=== PATIENT | female | born 1965 | race Caucasian/White ===

== ENCOUNTER 2020-04-17 12:48 | Outpatient (CLI) | payer BC, SELFPAY ==
--- NOTE | 2020-04-17 12:30 | XRR_ITS ---
PROCEDURE INFORMATION: Exam: XR Abdomen, 1 View Exam date and time: 04/17/2020 1:15 PM Age: 54 years old Clinical indication: Condition or disease; Kidney or ureter condition; Calculus (stone) in kidney and calculus (stone) in ureter; Prior surgery; Surgery type: Hysto; Additional info: Renal and ureteral stone TECHNIQUE: Imaging protocol: XR of the abdomen. Views: Frontal supine view of the abdomen. 1 View. COMPARISON: AR XR KUB [id number] 03/18/2019 7:14 AM FINDINGS: Gastrointestinal tract: Normal. No bowel dilation. Organs: A 3 mm calcification projects on the upper pole of the right kidney which is unchanged. Phleboliths are present in the lower pelvis. Bones/joints: Unremarkable. XR/XR KUB [id number] IMPRESSION: 1. Stable 3 mm calcification projecting in the upper pole of the right kidney. 2. No acute abnormalities are seen.
== END 2020-04-17 12:49 | disposition home or self-care (01) ==
LOC: RAD 12:52
PROVIDERS: PCP Nurse Practitioner Family; Visit Provider Nurse Practitioner Family
DX: N20.2 Calculus of kidney with calculus of ureter (principal)
CPT/HCPCS: 74018; 81003

== ENCOUNTER 2020-04-24 11:55 | Outpatient (CLI) | payer BC, SELFPAY ==
--- NOTE | 2020-04-24 11:59 | CT_ITS ---
WS: [id number] CT scan of the abdomen and pelvis without Oral and IV contrast. Additional two-dimensional coronal an d sagittal reconstruction was performed. 04/24/2020 Clinical Data: ACUTE CYSTITIS AND HEMATURIA Comparison: CT abdomen, 12/17/2017 DLP: 1117.[address] scans at [facility] use at least one of these dose optimization techniques: automat ed exposure control; mA and/or kV adjustment per patient size (includes targeted exams where dose is matched to clinical indication); or iterative reconstruction. Findings: The lower lungs show no nodules, masses or effusions. The liver, gallbladder, spleen, adrenal glands and pancreas are normal. The kidneys show no hydronephrosis, cysts or masses. There is a central nonobstructing 0.6 cm calculu s in the right kidney. No hydroureter or ureteral calculus is seen. The abdominal aorta is normal in size. No appendicitis or diverticulitis is seen. The stomach, small bowel and colon are not remarkable. No abscess, adenopathy, ascites, mass, obstruction or free air is seen. The bladder is unremarkable. The uterus is absent. No inguinal hernia is seen. The bones of the lower thorax, lumbar spine, pelvis, and hips show only osteoarthritic change of the lower thoracic and all the lumbar vertebral bodies. CT/CT kidney stone [id number] Impression: 1. Central nonobstructing 0.6 cm right renal calculus. 2. Negative for acute intra-abdominal or pelvic abnormalities.
== END 2020-04-24 11:56 | disposition home or self-care (01) ==
LOC: RADWPI 11:58
PROVIDERS: PCP Nurse Practitioner Family; Visit Provider Nurse Practitioner Family
DX: N30.01 Acute cystitis with hematuria (principal); N20.0 Calculus of kidney
CPT/HCPCS: 74176

== ENCOUNTER 2020-12-28 12:00 | Outpatient (CLI) | payer BC, SELFPAY ==
--- NOTE | 2020-12-28 12:15 | XR_ITS ---
WS: [id number] KUB, AP view, 12/28/2020 Clinical Data: RENAL STONE Comparison: KUB, 04/17/2020. Findings: No abnormal intraabdominal masses are seen. There is no dilatated small bowel or evidence of obstruct ion. There is a calcification overlying the superior pole the right kidney. Both kidneys are obscured by o verlying colon gas and fecal material. There are phleboliths in the true pelvis. XR/XR KUB [id number] Impression: Probable right renal calculus.
== END 2020-12-28 12:01 | disposition home or self-care (01) ==
LOC: RAD 12:01
PROVIDERS: PCP Nurse Practitioner Family; Visit Provider Urology
DX: N20.0 Calculus of kidney (principal)
CPT/HCPCS: 74018; 81003

== ENCOUNTER 2021-01-05 07:49 | Outpatient (CLI) | payer BC, SELFPAY ==
--- NOTE | 2021-01-05 08:00 | CT_ITS ---
WS: [id number] CT scan of the abdomen and pelvis with Oral and IV contrast. Additional two-dimensional coronal and s agittal reconstruction was performed. 01/05/2021 Clinical Data: RIGHT LATERAL ABDOMINAL PAIN Comparison: CT abdomen and pelvis, 04/24/2020. DLP: 1118.[address] scans at [facility] use at least one of these dose optimization techniques: automat ed exposure control; mA and/or kV adjustment per patient size (includes targeted exams where dose is matched to clinical indication); or iterative reconstruction. Findings: The lower lungs show no nodules, masses or effusions. The liver, gallbladder, spleen, adrenal glands and pancreas are normal. The kidneys show equal bilateral contrast excretion with a central 0.6 cm nonobstructing right renal calculus. No left renal calculi are seen. There are no cysts, masses or hydronephrosis.. The abdominal aorta is normal in size. No appendicitis or diverticulitis is seen. Oral contrast is in the stomach, small bowel and colon and there is no bowel dilatation. No abscess, adenopathy, ascites, mass, obstruction or free air is seen . The bladder is unremarkable. No uterus is seen. No inguinal hernia is seen. 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 CT/CT abdomen pelvis w con* [id number] Impression: Negative for acute intra-abdominal or pelvic abnormalities.
[2021-01-05] MEDS: iohexol 300 mg/mL 50 mL Btl PO (08:52)
[2021-01-05] MEDS: iohexol 300 mg/mL 100 mL Btl IV (09:43)
== END 2021-01-05 07:50 | disposition home or self-care (01) ==
PROVIDERS: PCP Nurse Practitioner Family; Visit Provider Nurse Practitioner Family
DX: R10.9 Unspecified abdominal pain (principal)
CPT/HCPCS: 74177; Q9967

== ENCOUNTER 2021-03-09 07:51 | Outpatient (CLI) | payer BC, SELFPAY ==
--- NOTE | 2021-03-09 08:00 | MM_ITS ---
WS: [id number] SCREENING DIGITAL MAMMOGRAM WITH CAD HISTORY: SCR COMPARISON: 07/03/2017 and 08/24/2010 Bilateral CC and MLO views submitted. Computer aided detection analyzed. Breast composition: There are scattered areas of fibroglandular density. No suspicious masses, microc alcifications or architectural distortion. MM/[place] [id number] IMPRESSION: BI-RADS: 1-Negative FOLLOW UP: 1 Year Follow-up
== END 2021-03-09 07:52 | disposition home or self-care (01) ==
LOC: RADSHAW 07:53
PROVIDERS: PCP Nurse Practitioner Family; Visit Provider Nurse Practitioner Family
DX: Z12.31 Encounter for screening mammogram for malignant neoplasm of breast (principal)
CPT/HCPCS: 77067

== ENCOUNTER 2021-03-28 09:11 | Outpatient (CLI) | payer BC, SELFPAY ==
--- NOTE | 2021-03-28 09:20 | XR_ITS ---
WS: [id number] XR KUB [id number] REASON FOR EXAM: hematuria FINDINGS: Small calculus in the upper pole of the right kidney. No other intrarenal calculi identified. No hernandez ge from 12/28/2020. No calculi identified along the course of the ureters or overlying the urinary bladder. Small calcifi cations in the pelvis considered outside the genitourinary tract. No other significant abdominal or pelvic abnormality. XR/XR KUB [id number] IMPRESSION: Right intrarenal calculus unchanged. No other significant abnormality.
== END 2021-03-28 09:12 | disposition home or self-care (01) ==
LOC: RAD 09:13
PROVIDERS: PCP Nurse Practitioner Family; Visit Provider Urology
DX: N20.0 Calculus of kidney (principal); R31.9 Hematuria, unspecified
CPT/HCPCS: 74018; 81003; 87635; 88112

== ENCOUNTER 2021-04-10 06:00 | Outpatient (RCR) | payer BC, SELFPAY | END 2021-04-15 23:59 | disposition home or self-care (01) | LOC: SPT 06:00 | PROVIDERS: PCP Nurse Practitioner Family; Referring Provider Orthopaedic Surgery; Visit Provider Orthopaedic Surgery | DX: M17.12 Unilateral primary osteoarthritis, left knee (principal) | CPT/HCPCS: 97110; 97161 ==

== ENCOUNTER 2021-04-16 06:00 | Outpatient (RCR) | payer BC, SELFPAY | END 2021-05-03 15:11 | disposition home or self-care (01) | LOC: SPT 06:00 | PROVIDERS: PCP Nurse Practitioner Family; Referring Provider Orthopaedic Surgery; Visit Provider Orthopaedic Surgery | DX: M17.12 Unilateral primary osteoarthritis, left knee (principal) | CPT/HCPCS: 97110 ==

== ENCOUNTER 2021-04-23 07:39 | Outpatient (CLI) | payer BC, SELFPAY ==
--- NOTE | 2021-04-23 07:15 | XRR_ITS ---
PROCEDURE INFORMATION: Exam: XR Abdomen Exam date and time: 04/23/2021 7:15 AM Age: 55 years old Clinical indication: Condition or disease; Kidney or ureter condition; Calculus (stone) in kidney; Prior surgery; Surgery type: Hystero; Patient HX: Follow up; Additional info: Renal stone TECHNIQUE: Imaging protocol: XR of the abdomen. Views: Frontal supine view of the abdomen. 1 View. COMPARISON: CR XR KUB [id number] 03/28/2021 9:39 AM FINDINGS: Gastrointestinal tract: Nonobstructive bowel gas pattern. Bones/joints: Mild levocurvature of the lumbar spine and multilevel degenerative changes seen. Other findings: A 4 mm nonobstructing stone is again seen projecting over the right kidney shadow. XR/XR KUB [id number] IMPRESSION: Nonobstructive bowel gas pattern. Radiation Dose CTDIVOL = (mGy): DLP = (mGy-cm)
== END 2021-04-23 07:40 | disposition home or self-care (01) ==
LOC: RAD 07:42
PROVIDERS: PCP Nurse Practitioner Family; Visit Provider Urology
DX: N20.0 Calculus of kidney (principal)
CPT/HCPCS: 74018; 81003

== ENCOUNTER 2022-08-21 06:00 | Outpatient (RCR) | payer OTHER, SELFPAY | END 2022-09-13 23:59 | disposition home or self-care (01) | LOC: SPT 06:00 | PROVIDERS: PCP Nurse Practitioner Family; Visit Provider Orthopaedic Surgery | DX: M47.816 Spondylosis without myelopathy or radiculopathy, lumbar region (principal) | CPT/HCPCS: 97110; 97162 ==

== ENCOUNTER 2022-09-14 01:00 | Outpatient (RCR) | payer OTHER, SELFPAY | END 2022-10-13 23:59 | disposition home or self-care (01) | LOC: SPT 01:00 | PROVIDERS: PCP Nurse Practitioner Family; Visit Provider Orthopaedic Surgery | DX: M47.816 Spondylosis without myelopathy or radiculopathy, lumbar region (principal) | CPT/HCPCS: 97110 ==

== ENCOUNTER 2022-10-14 06:00 | Outpatient (RCR) | payer OTHER, SELFPAY | END 2022-11-13 23:59 | disposition home or self-care (01) | LOC: SPT 06:00 | PROVIDERS: PCP Nurse Practitioner Family; Visit Provider Orthopaedic Surgery | DX: M47.816 Spondylosis without myelopathy or radiculopathy, lumbar region (principal) | CPT/HCPCS: 97110; G0283 ==

== ENCOUNTER 2022-11-08 11:30 | Emergency (ER) | payer OTHER, MEDICAID, SELFPAY ==
[2022-11-08] VITALS (7 sets, daily range): BP systolic 131–169; BP diastolic 73–89; PULSE 68–78; RESP 16–17; TEMP 36.6–36.8; O2SAT 94–98; BMI 39.1
[2022-11-08 12:58] LABS: Basophils % 0.5 %; Eosinophils # 0.1 10^3/uL (0.0-0.8); Eosinophils % 1.2 %; Hematocrit 46.4 % (37.0-47.0); Hemoglobin 15.2 g/dL (11.5-15.3); Lymphocytes # 2.8 10^3/uL (0.8-4.8); Lymphocytes % 34.1 %; Mean Corpuscular HGB Conc 32.8 g/dL (30.0-36.0); Mean Corpuscular Hemoglobin 30.1 pg (28.0-34.0); Mean Corpuscular Volume 91.9 fl (81-99); Mean Platelet Volume 12.7 fL (7.4-10.4); Monocytes # 0.3 10^3/uL (0.2-0.9); Monocytes % 3.5 %; Neutrophils # 4.99 10^3/uL (1.8-7.7); Neutrophils % 60.5 %; Nucleated Red Blood Cells % 0 %; Platelet Count 123 10^3/cmm (130-400); Red Blood Count 5.05 10^6/uL (4.1-5.3); Red Cell Distribution Width 13.3 % (12.1-15.1); White Blood Count 8.3 10^3/uL (4.0-10.0)
[2022-11-08 13:13] LABS: Alanine Aminotransferase 16 U/L (0-33); Albumin Level 3.8 g/dL (3.5-5.2); Alkaline Phosphatase 94 U/L (35-105); Aspartate Amino Transferase 15 U/L (0-32); Blood Urea Nitrogen 8 mg/dL (6-20); Calcium 8.6 mg/dL (8.5-10.5); Carbon Dioxide 20 mmol/L (22-29); Chloride 105 mmol/L (98-107); Creatinine Clr Calc Pharmacy 152.3946; Globulin 2.8 g/dL (1.3-4.6); Glomerular Filtration Rate 127.6 mL/min (90-130); Glucose 87 mg/dL (65-115); Osmolality Calculated 286 mOsm/kg (285-295); Sodium 139 mmol/L (136-145); Total Bilirubin 0.8 mg/dL (0.15-1.2); Total Protein 6.6 g/dL (6.6-8.7)
[2022-11-08 13:17] LABS: Anion Gap 18.1 (5-19); Potassium 4.1 mmol/L (3.5-5.1)
--- NOTE | 2022-11-08 16:51 | CTR_ITS ---
PROCEDURE INFORMATION: Exam: CT Abdomen And Pelvis Without Contrast Exam date and time: 11/08/2022 5:03 PM Age: 57 years old Clinical indication: Abdominal pain; Flank; Right; Prior surgery; Surgery date: 6+ months; Surgery type: Hyster; Additional info: Flank pain, HX of kidney stones TECHNIQUE: Imaging protocol: Computed tomography of the abdomen and pelvis without contrast. Axial, coronal and sagittal reformatted images were created and reviewed. Radiation optimization: All CT scans at this facility use at least one of these dose optimization techniques: automated exposure control; mA and/or kV adjustment per patient size (includes targeted exams where dose is matched to clinical indication); or iterative reconstruction. REPORTING DATA: Count of CT and Cardiac NM exams in prior 12 months: This patient has received 0 known CTs and 0 known cardiac nuclear medicine studies in the 12 months prior to the current study. COMPARISON: CT abdomen pelvis w con* [id number] 01/05/2021 9:32 AM RADIATION DOSE METRICS: Total DLP (mGy-cm): 1008.36 FINDINGS: Liver: Mild hepatomegaly. Diffuse hepatic steatosis. Gallbladder and bile ducts: No radiodense gallstones. No biliary ductal dilatation. Pancreas: Unremarkable. Spleen: 2 cm simple splenic cyst. Adrenal glands: Normal. No mass. Kidneys and ureters: Nonobstructing right renal calculi. No hydronephrosis. Stomach and bowel: No bowel wall thickening. No obstruction. No pneumatosis. Appendix: Normal. Intraperitoneal space: No free fluid. No organized fluid collection. No free air. Vasculature: Mild atherosclerotic disease. No aneurysm. Lymph nodes: No pathologically enlarged lymph nodes. Urinary bladder: Unremarkable as visualized. Reproductive: Status post hysterectomy. Bones/joints: No acute osseous abnormality. Osteopenia. Degenerative changes. Soft tissues: Unremarkable. CT/CT abdomen pelvis wo con [id number] IMPRESSION: 1. Limited noncontrast examination without CT evidence of acute intra-abdominal or pelvic pathology. 2. Additional findings, as above.
--- NOTE | 2022-11-08 17:11 | ED_ITS ---
HPI - Abdominal Pain General: Chief Complaint: Abdominal Pain Stated Complaint: low back pain Time Seen by Provider: 11/08/22 16:55 History of Present Illness: Patient presents with a right-sided flank pain starting yesterday. Patient does state this is similar to when she had kidney stones in the past. Patient does state that nothing makes his pain better or worse. MD elicited complaint: flank pain Pertinent past history: kidney stones Onset (ago): day(s) (Yesterday) Pain Consistency: colicky Location: R flank Quality: stabbing Radiation: none Migration to: no migration Exacerbating factors: nothing Relieving factors: nothing Associated Symptoms: Reports no associated symptoms; Denies chills, fever(s), nausea and vomiting Review of Systems General: Reports: 10 or more systems reviewed and unremarkable except in HPI and below Const: Denies: fever(s), chills or body aches ENMT: Denies: throat pain or enlarged tonsils Card: Denies: chest pain, palpitations or irregular heart rhythm Resp: Denies: dyspnea or non-productive cough GI: Denies: abdominal pain, nausea or vomiting : Reports: flank pain PFSH ED PFSH: Medical History Chronic cystitis Cystitis Gross hematuria Right renal stone Urgency incontinence Surgical History H/O knee surgery H/O: hysterectomy S/P foot surgery, right Family History Father Diabetes CAD (coronary artery disease) Social History Alcohol intake: never Substance/Drug Use: never Marital status: Current occupational status: employed Physical Exam Const: COMMON NORMALS: no acute distress, average body habitus, patient oriented x3, no limitations, healthy appearing, alert and well nourished HENMT: COMMON NORMALS: normocephalic, atraumatic, hearing grossly normal bilaterally, Normal external nose present and moist oral mucous membranes HEAD & SCALP: normocephalic and atraumatic NOSE: Normal external nose present Eye: COMMON NORMALS: Equal, round and reactive pupils present, EOMs intact bilaterally, conjunctivae normal and no scleral icterus CONJUNCTIVA: Yes conjunctivae normal PUPIL: Yes Equal, round and reactive pupils present Neck/C-Spine: COMMON NORMALS: full ROM, no lymphadenopathy, supple, no meni ngeal signs, no JVD and Thyroid normal THYROID: Thyroid normal Lymph: LYMPHATIC: no lymphadenopathy noted Chest: COMMONS NORMALS: normal inspection of the chest and normal palpation of entire chest wall Resp: COMMON NORMALS: normal respiratory effort, No retractions, No use of accessory muscles and clear to auscultation bilaterally AUSCULTATION: clear to auscultation bilaterally Cardio: COMMON NORMALS: no JVD, regular rate, regular rhythm, S1 normal heart sound present, S2 normal heart sound present, No gallops present (Cardio), No clicks present (Cardio), No murmurs present (Cardio) and No rub (Cardio) RATE : regular rate RHYTHM: regular rhythm HEART SOUNDS: S1 normal heart sound present and S2 normal heart sound present GI: COMMON NORMALS: Normal to inspection, nondistended, normoactive bowel sounds present, Soft to palpation, non-tender, No hepatosplenomegaly present and no masses PALPATION: Yes Soft to palpation and Yes No hepatosplenomegaly present : BLADDER/KIDNEY EXAM: Yes CVA tenderness on the right Back/Pelvis: GENERAL BACK: Yes CVA tenderness Neuro: COMMON NORMALS: patient oriented x3 SENSORIUM/ORIENTATION: Yes alert MENINGEAL SIGNS: Yes no meningeal signs Course Vital Signs: Vital signs: Vital Signs Temperature 97.9 F 11/08/22 16:30 Pulse Rate 68 11/08/22 17:35 Respiratory Rate 16 11/08/22 17:35 Blood Pressure 168/83 11/08/22 17:35 Pulse Oximetry 98 11/08/22 17:35 Oxygen Delivery Me thod Room Air 11/08/22 17:35 MDM - Abdominal Pain Medical Decision Making Patient presents to the ER today with complaints of low back pain, right flank pain, patient has history of kidney stones in the past and says this feels exactly like them. Lab work was obtained as well as CT scan which showed right renal stone. Lab work was unremarkable. UA is pending. Patient will be discharged home with a diagnosis of right renal stone and low back pain. Patient is to follow-up with her primary care practitioner within 1 week. Differential Diagnosis Likely calculus of kidney; Unlikely abdominal pain, acute appendicitis, c onstipation, diverticulitis, endometriosis, gastroenteritis or small bowel obstruction Medical Records I reviewed the patient's medical records. Lab Data I reviewed the patient's lab results. 11/08/22 12:40 11/08/22 12:40 Labs/Radiology: Radiology Impressions Abdomen/Pelvis CT 11/08/22 16:51 IMPRESSION: 1. Limited noncontrast examination without CT evidence of acute intra-abdominal or pelvic pathology. 2. Additional findings, as above. Laboratory Results WBC 8.3 10^3/uL (4.0-10.0) 11/08/22 12:40 RBC 5.05 10^6/uL (4.1-5.3) 11/08/22 12:40 Hgb 15.2 g/dL (11.5-15.3) 11/08/22 12:40 Hct 46.4 % (37.0-47.0) 11/08/22 12:40 MCV 91.9 fl (81-99) 11/08/22 12:40 MCH 30.1 pg (28.0-34.0) 11/08/22 12:40 MCHC 32.8 g/dL (30.0-36.0) 11/08/22 12:40 RDW 13.3 % (12.1-15.1) 11/08/22 12:40 Plt Count 123 10^3/cmm (130-400) L 11/08/22 12:40 MPV 12.7 fL (7.4-10.4) H 11/08/22 12:40 Neut % (Auto) 60.5 % 11/08/22 12:40 Lymph % (Auto) 34.1 % 11/08/22 12:40 Mcnairy % (Auto) 3.5 % 11/08/22 12:40 Eos % (Auto) 1.2 % 11/08/22 12:40 Baso % (Auto) 0.5 % 11/08/22 12:40 Neut # (Auto) 4.99 10^3/uL (1.8-7.7) 11/08/22 12:40 Lymph # (Auto) 2.8 10^3/uL (0.8-4.8) 11/08/22 12:40 Mcnairy # (Auto) 0.3 10^3/uL (0.2-0.9) 11/08/22 12:40 Eos # (Auto) 0.1 10^3/uL (0.0-0.8) 11/08/22 12:40 Baso # (Auto) 0.0 10^3/uL (0.0-0.1) 11/08/22 12:40 Nucleated RBC % (auto) 0 % 11/08/22 12:40 Nucleated RBCs # 0.0 /100WBC 11/08/22 12:40 Sodium 139 mmol/L (136-145) 11/08/22 12:40 Potassium 4.1 mmol/L (3.5-5.1) 11/08/22 12:40 Chloride 105 mmol/L (98-107) 11/08/22 12:40 Carbon Dioxide 20 mmol/L (22-29) L 11/08/22 12:40 Anion Gap 18.1 (5-19) 11/08/22 12:40 BUN 8 mg/dL (6-20) 11/08/22 12:40 Creatinine 0.5 mg/dL (0.5-0.9) 11/08/22 12:40 GFR Calculation 127.6 mL/min (90-130) 11/08/22 12:40 Glucose 87 mg/dL (65-115) 11/08/22 12:40 Calculated Osmolality 286 mOsm/kg (285-295) 11/08/22 12:40 Calcium 8.6 mg/dL (8.5-10.5) 11/08/22 12:40 Total Bilirubin 0.8 mg/dL (0.15-1.2) 11/08/22 12:40 AST 15 U/L (0-32) 11/08/22 12:40 ALT 16 U/L (0-33) 11/08/22 12:40 Alkaline Phosphatase 94 U/L (35-105) 11/08/22 12:40 Total Protein 6.6 g/dL (6.6-8.7) 11/08/22 12:40 Albumin 3.8 g/dL (3.5-5.2) 11/08/22 12:40 Globulin 2.8 g/dL (1.3-4.6) 11/08/22 12:40 Discharge Plan Discharge Patient Disposition: Home Clinical Impression: Right renal stone Low back pain Qualifiers: Chronicity: acute Back pain laterality: right Sciatica presence: without sciatica Qualified Code(s): M54.50 - Low back pain, unspecified Condition: Stable Prescriptions: No Action celecoxib 200 mg capsule 200 mg PO DAILY amoxicillin-pot clavulanate 875-125 mg tablet 1 tab PO BID Qty: 30 3RF Discharge Orders: Discharge ED (Routine); Ordered 11/08/22 Ordered By: Kaleb Ambrose Referrals: Cecile Fuentes FNP [Primary Care Provider] - 1 week Patient Instructions: Kidney Stones, Back Pain (ED) Coding Level of Care Code ED Public Health Veterinarian for Aj Keith
[2022-11-08] MEDS: ketorolac 60 mg/2 mL INJ IM (17:31)
[2022-11-08 18:45] LABS: Add Urine Microscopic? YES; Bilirubin Urine Neg (Negative); Blood Urine 2+ (Negative); Glucose Urine UA Norm (Normal); Ketones Urine 1+ (Negative); Nitrate Urine Positive (Negative); Protein Urine Neg (Negative); Specific Gravity, Urine 1.025 (1.005-1.030); Urine Appearance Cloudy (CLEAR); Urine Color Yellow (Yellow); Urobilinogen Urine Norm (Negative); pH Urine 5 (5-7)
[2022-11-08 18:46] LABS: Leukocyte Esterase Urine Trace (Negative)
[2022-11-08 18:47] LABS: Bacteria Urine 3+ /hpf
[2022-11-08 18:48] LABS: Mucus Urine 1+ /hpf
== END 2022-11-08 18:14 | disposition home or self-care (01) ==
PROVIDERS: Physician Assistant; Emergency Provider Emergency Medicine; PCP Nurse Practitioner Family
DX: M54.50 Low back pain, unspecified (principal); N20.0 Calculus of kidney; Z87.442 Personal history of urinary calculi
CPT/HCPCS: 36415; 74176; 80053; 81001; 85025; 96372; 99284; J1885

== ENCOUNTER 2023-11-01 19:05 | Emergency (ER) | payer OTHER, SELFPAY ==
[2023-11-01 19:22] VITALS: BP 107/52; PULSE 96; RESP 16; TEMP 37.2; O2SAT 96; BMI 41.1
--- NOTE | 2023-11-01 19:38 | CTR_ITS ---
PROCEDURE INFORMATION: Exam: CT Abdomen And Pelvis Without Contrast Exam date and time: 11/01/2023 8:40 PM Age: 58 years old Clinical indication: Abdominal pain; Right; Prior surgery; Surgery date: 6+ months; Surgery type: Hysterectomy; Patient HX: C/O RT flank pain. History of nephrolithiasis. TECHNIQUE: Imaging protocol: Computed tomography of the abdomen and pelvis without contrast. Radiation optimization: All CT scans at this facility use at least one of these dose optimization techniques: automated exposure control; mA and/or kV adjustment per patient size (includes targeted exams where dose is matched to clinical indication); or iterative reconstruction. COMPARISON: CT abdomen pelvis wo con [id number] 11/08/2022 5:03 PM RADIATION DOSE METRICS: Total DLP (mGy-cm): 1038.43 FINDINGS: Liver: The liver is diffusely low in attenuation consistent with hepatic steatosis. Gallbladder and bile ducts: Normal. No calcified stones. No ductal dilation. Pancreas: Normal. No ductal dilation. Spleen: There is a 2.2 cm simple appearing cyst in the anterior aspect of the spleen. Adrenal glands: Normal. No mass. Kidneys and ureters: There is a nonobstructing 6 mm stone in the right kidney. There is an obstructing 4 mm stone in the distal right ureter at the ureterovesical junction with upstream hydro ureter and moderate hydronephrosis. Stomach and bowel: Unremarkable. No obstruction. No mucosal thickening. Appendix: No evidence of appendicitis. Intraperitoneal space: Unremarkable. No free air. No significant fluid collection. Vasculature: Unremarkable. No abdominal aortic aneurysm. Lymph nodes: Unremarkable. No enlarged lymph nodes. Urinary bladder: Unremarkable as visualized. Reproductive: Unremarkable as visualized. Bones/joints: Unremarkable. No acute fracture. Soft tissues: Unremarkable. CT/CT kidney stone [id number] IMPRESSION: There is an obstructing 4 mm stone in the distal right ureter at the ureterovesical junction with upstream hydro ureter and moderate hydronephrosis.
--- NOTE | 2023-11-01 20:53 | ED_ITS ---
Documented by User: LEONARDO Williamson 11/01/23 23:31 HPI - Abdominal Pain 2 General: Chief Complaint: Abdominal Pain Stated Complaint: UTI Time Seen by Provider: 11/01/23 20:26 Source: patient Mode of arrival: ambulatory Limitations: no limitations History of Present Illness: Patient is a 58-year-old female who presents to the emergency department complaining of right-sided flank pain onset today. Patient initially was seen at [facility] walk-in where she was diagnosed with a UTI and started on Keflex. She states that she was told to present to the ED if her pain persisted. She notes that she is now feeling pain in her right side which was not there earlier, and has been having associated fevers, chills, and nausea/vomiting. She states she has a history of kidney stones and that this feels similar. She also notes that she has a current kidney stone that has been sitting in her kidneys for years. She was seen recently in the emergency department for the same pain. Currently she is reporting some hematuria and dysuria, which is what prompted her to get evaluation at [facility]. Pain is reportedly constant and is sharp in quality. Pain does not radiate and is localized to the right CVA. She has only taken ibuprofen and Tylenol for her pain which has not seemed to help. She is requesting something stronger for pain and something for nausea at this time. MD elicited complaint: flank pain Pertinent past history: kidney stones and past UTI Onset (ago): hour(s) Pain Consistency: constant Location: R flank Severity: moderate Quality: sharp Associated Symptoms: Reports chills, dysuria, fever(s), hematuria, nausea and vomiting; Denies bloating, change in stool character, constipation, diarrhea and hematochezia Treatments prior to arrival: NSAIDs Review of Systems 2 General: Reports: 10 or more systems reviewed and unremarkable except in HPI and below Const: Reports: fever(s) and chills; Denies: change in appetite, change in weight or diaphoresis ENMT: Denies: throat pain or hoarseness Card: Denies: chest pain, palpitations or lightheadedness Resp: Denies: dyspnea, productive cough or wheezing GI: Reports: nausea and vomiting; Denies: abdominal pain, diarrhea, constipation, bloating, change in stool character or hematochezia : Reports: flank pain, dysuria and hematuria Musc: Denies: neck pain or back pain Skin/Breast: Denies: rash or new lesions Neuro: Denies: headache(s) or dizziness PFSH ED 2 PFSH: Medical History Gross hematuria Chronic cystitis Urgency incontinence Right renal stone Cystitis Surgical History H/O knee surgery S/P foot surgery, right H/O: hysterectomy Family History Father Diabetes CAD (coronary artery disease) Social History Alcohol intake: never Substance/Drug Use: never Marital status: Current occupational status: employed Physical Exam 2 Const: COMMON NORMALS: patient oriented x3, no limitations, healthy appearing, alert and well nourished GENERAL APPEARANCE: cooperative, comfortable and in distress (from pain) NUTRITIONAL APPEARANCE: obese O RIENTATION/CONSCIOUSNESS: Yes awake HENMT: COMMON NORMALS: normocephalic, atraumatic, hearing grossly normal bilaterally, external ears normal, Normal external nose present and Normal nasal mucous membranes and turbinates present HEAD & SCALP: normocephalic and atraumatic NOSE: Normal external nose present and Normal nasal mucous membranes and turbinates present EXTERNAL EAR: Yes external ears normal O THER: Dry oral mucosa Eye: COMMON NORMALS: EOMs intact bilaterally, conjunctivae normal and normal visual rivera by confrontation CONJUNCTIVA: Yes conjunctivae normal Neck/C-Spine: COMMON NORMALS: full ROM, supple, no meningeal signs and no JVD Resp: COMMON NORMALS: normal respiratory effort, No retractions, No use of accessory muscles and clear to auscultation bilaterally AUSCULTATION: clear to auscultation bilaterally, no crackles, no rales, no rhonchi and no wheezes Cardio: COMMON NORMALS: no JVD, regular rate, regular rhythm, S1 normal heart sound present, S2 normal heart sound present, No gallops present (Cardio), No clicks present (Cardio), No murmurs present (Cardio), No rub (Cardio) and Peripheral pulses 2+ throughout RATE: regular rate RHYTHM: regular rhythm HEART SOUNDS: S1 normal heart sound present and S2 normal heart sound present PERIPHERAL PULSES: Peripheral pulses 2+ throughout GI: COMMON NORMALS: Normal to inspection, nondistended, normoactive bowel sounds present, Soft to palpation, non-tender, No hepatosplenomegaly present and no masses AUSCULTATION: Yes normoactive bowel sounds PALPATION: Yes Soft to palpation, No Guarding due to palpation present (GI), No Rigid due to palpation and Yes No hepatosplenomegaly present RECTAL EXAM: deferred : BLADDER/KIDNEY EXAM: Yes CVA tenderness on the right Back/Pelvis: GENERAL BACK: Yes CVA tenderness CVA tenderness: right Extremity: COMMON NORMALS: normal to inspection and full ROM Neuro: COMMON NORMALS: patient oriented x3, moves all extremities, no focal motor deficits and no sensory deficits noted SENSORIUM/ORIENTATION: Yes alert MENINGEAL SIGNS: Yes no meningeal signs Psych: COMMON NORMALS: mental status grossly normal, cooperative and speech normal SPEECH: Yes normal speech Skin: COMMON NORMALS: no rashes or lesions noted GENERAL SKIN EXAM: no rashes or lesions noted Course 2 Vital Signs: Vital signs: Vital Signs Temperature 98.9 F 11/01/23 19:22 Pulse Rate 68 11/01/23 23:47 Respiratory Rate 18 11/01/23 23:47 Blood Pressure 123/54 11/01/23 23:47 Pulse Oximetry 97 11/01/23 23:47 Oxygen Delivery Me thod Room Air 11/01/23 19:22 MDM - Abdominal Pain Medical Decision Making Patient had presented after being seen in urgent care at [facility] where she was diagnosed with urinary tract infection. She presented stating her pain is worsened. History of kidney stones noted. Blood work initially clotted, so CMP resulted first showing that her CRP elevated at 20. Urinalysis did show evidence of a pretty significant urinary tract infection, and CBC later revealed white count elevated at 19 with left shift. Abdomen pelvis CT obtained showed an obstructing 4 mm stone at the distal right UVJ with associated hydro ureter nephrosis. Spoke with a Dr. Mathews, urologist at [facility], who stated that patient can be transferred for surgical removal or treated at home with tamsulosin and pain control. I then spoke with the patient, and we came to an agreement after she discussed with her family that she be transferred instead of treating at home. Patient officially excepted for transfer and states that her pain and nausea are currently absent at this time. Transfer pending. Lab Data I reviewed the patient's lab results. 11/01/23 22:53 11/01/23 21:08 Labs/Radiology: Radiology Impressions Abdomen/Pelvis CT 11/01/23 19:38 IMPRESSION: There is an obstructing 4 mm stone in the distal right ureter at the ureterovesical junction with upstream hydro ureter and moderate hydronephrosis. Laboratory Results WBC 19.02 10^3/uL (3.29-11.43) H 11/01/23 22:53 Corrected WBC Cancelled 11/01/23 21:08 RBC 4.54 10^6/uL (3.85-5.65) 11/01/23 22:53 Hgb 14.00 g/dL (11.27-16.99) 11/01/23 22:53 Hct 42.4 % (36-47) 11/01/23 22:53 MCV 93.4 fl (85-98) 11/01/23 22:53 MCH 30.8 pg (27-33) 11/01/23 22:53 MCHC 33.0 g/dL (30-55) 11/01/23 22:53 RDW 13.5 % (12.1-15.1) 11/01/23 22:53 Plt Count 204 10^3/cmm (157-399) 11/01/23 22:53 MPV 10.2 fL (7.4-10.4) 11/01/23 22:53 Gran % Cancelled 11/01/23 21:08 Neut % (Auto) 89.1 % 11/01/23 22:53 Lymph % (Auto) 6.6 % 11/01/23 22:53 [place] % (Auto) 3.3 % 11/01/23 22:53 Eos % (Auto) 0.1 % 11/01/23 22:53 Baso % (Auto) 0.2 % 11/01/23 22:53 Neut # (Auto) 16.96 10^3/uL (1.8-7.7) H 11/01/23 22:53 Lymph # (Auto) 1.3 10^3/uL (0.8-4.8) 11/01/23 22:53 [place] # (Auto) 0.6 10^3/uL (0.2-0.9) 11/01/23 22:53 Eos # (Auto) 0.0 10^3/uL (0.0-0.8) 11/01/23 22:53 Baso # (Auto) 0.0 10^3/uL (0.0-0.1) 11/01/23 22:53 Absolute Gran (auto) Cancelled 11/01/23 21:08 Nucleated RBC % (auto) 0 % 11/01/23 22:53 Nucleated RBCs # 0.0 /100WBC 11/01/23 22:53 Sodium 140 mmol/L (136-145) 11/01/23 21:08 Potassium 3.9 mmol/L (3.5-5.1) 11/01/23 21:08 Chloride 106 mmol/L (98-107) 11/01/23 21:08 Carbon Dioxide 22 mmol/L (22-29) 11/01/23 21:08 Anion Gap 15.9 (5-19) 11/01/23 21:08 BUN 14 mg/dL (6-20) 11/01/23 21:08 Creatinine 1.0 mg/dL (0.5-0.9) H 11/01/23 21:08 GFR Calculation 57.1 mL/min (90-130) L 11/01/23 21:08 Glucose 101 mg/dL (65-115) 11/01/23 21:08 Calculated Osmolality 291 mOsm/kg (285-295) 11/01/23 21:08 Lactic Acid 1.2 mmol/L (0.5-2.2) 11/01/23 22:53 Calcium 8.6 mg/dL (8.5-10.5) 11/01/23 21:08 Total Bilirubin 0.9 mg/dL (0.15-1.2) 11/01/23 21:08 AST 24 U/L (0-32) 11/01/23 21:08 ALT 20 U/L (0-33) 11/01/23 21:08 Alkaline Phosphatase 98 U/L (35-105) 11/01/23 21:08 C-Reactive Protein 19.3 mg/L (0.0-4.9) H 11/01/23 21:08 Total Protein 7.1 g/dL (6.6-8.7) 11/01/23 21:08 Albumin 3.9 g/dL (3.5-5.2) 11/01/23 21:08 Globulin 3.2 g/dL (1.3-4.6) 11/01/23 21:[address] [place] (Yellow) A 11/01/23 21:42 Urine Appearance Hazy (CLEAR) A 11/01/23 21:42 Urine pH 5 (5-7) 11/01/23 21:42 Ur Specific [place] 1.020 (1.005-1.030) 11/01/23 21:42 Urine Protein 3+ (Negative) H 11/01/23 21:42 Urine Glucose (UA) Norm (Normal) 11/01/23 21:42 Urine Ketones Negative (Negative) 11/01/23 21:42 Urine Blood 2+ (Negative) H 11/01/23 21:42 Urine Nitrate Positive (Negative) H 11/01/23 21:42 Urine Bilirubin 3+ (Negative) H 11/01/23 21:42 Urine Urobilinogen 4+ mg/dL (Negative) H 11/01/23 21:42 Ur Leukocyte Esterase Trace (Negative) H 11/01/23 21:42 Urine RBC 0-4 /hpf (0-2) H 11/01/23 21:42 Urine WBC 15-25 /hpf (0-5) H 11/01/23 21:42 Ur Squamous Epith Cells 5-10 /hpf (0-5) H 11/01/23 21:42 Amorphous Sediment Not Reportable 11/01/23 21:42 Urine Bacteria 2+ /hpf (NONE) H 11/01/23 21:42 Urine Mucus 1+ /hpf 11/01/23 21:42 All radiology interpretation(s) finalized by discharge Discharge Plan Discharge Patient Disposition: Xfer Short-Term Hosp Clinical Impression: Hydroureteronephrosis Obstruction of ureter Qualifiers: Laterality: right Qualified Code(s): N13.5 - Crossing vessel and stricture of ureter without hydronephrosis Urinary tract infection Qualifiers: Urinary tract infection type: site unspecified Hematuria presence: with hematuria Qualified Code(s): N39.0 - Urinary tract infection, site not specified Condition: Stable Referrals: Cecile Fuentes FNP [Primary Care Provider] - Coding Level of Care Code ED Lithograph Printer for Chg Fwd Documented by User: Michael Ortiz DO 11/02/23 07:12 HPI - Abdominal Pain 2 General: Chief Complaint: Abdominal Pain Stated Complaint: UTI Time Seen by Provider: 11/01/23 20:26 PFS ED 2 PFSH: Medical History Gross hematuria Chronic cystitis Urgency incontinence Right renal stone Cystitis Surgical History H/O knee surgery S/P foot surgery, right H/O: hysterectomy Family History Father Diabetes CAD (coronary artery disease) Social History Alcohol intake: never Substance/Drug Use: never Marital status: Current occupational status: employed Course 2 Vital Signs: Vital signs: Vital Signs Temperature 98.9 F 11/01/23 19:22 Pulse Rate 68 11/01/23 23:47 Respiratory Rate 18 11/01/23 23:47 Blood Pressure 123/54 11/01/23 23:47 Pulse Oximetry 97 11/01/23 23:47 Oxygen Delivery Me thod Room Air 11/01/23 19:22 MDM - Abdominal Pain Medical Decision Making Patient had presented after being seen in urgent care at [facility] today where she was diagnosed with urinary tract infection. She presented stating her pain is worsened. History of kidney stones noted. Blood work initially clotted, so CMP resulted first showing that her CRP elevated at 20. Urinalysis did show evidence of a pretty significant urinary tract infection, and CBC later revealed white count elevated at 19 with left shift. Abdomen pelvis CT obtained showed an obstructing 4 mm stone at the distal right UVJ with associated hydro ureter nephrosis. Spoke with a Dr. Mathews, urologist at [facility], who stated that patient can be transferred for surgical removal or treated at home with tamsulosin and pain control. I then spoke with the patient, and we came to an agreement after she discussed with her family that she be transferred instead of treating at home. Patient officially excepted for transfer and states that her pain and nausea are currently absent at this time. Transfer pending. Chart reviewed Lab Data 11/01/23 22:53 11/01/23 21:08 Labs/Radiology: Radiology Impressions Abdomen/Pelvis CT 11/01/23 19:38 IMPRESSION: There is an obstructing 4 mm stone in the distal right ureter at the ureterovesical junction with upstream hydro ureter and moderate hydronephrosis. Laboratory Results WBC 19.02 10^3/uL (3.29-11.43) H 11/01/23 22:53 Corrected WBC Cancelled 11/01/23 21:08 RBC 4.54 10^6/uL (3.85-5.65) 11/01/23 22:53 Hgb 14.00 g/dL (11.27-16.99) 11/01/23 22:53 Hct 42.4 % (36-47) 11/01/23 22:53 MCV 93.4 fl (85-98) 11/01/23 22:53 MCH 30.8 pg (27-33) 11/01/23 22:53 MCHC 33.0 g/dL (30-55) 11/01/23 22:53 RDW 13.5 % (12.1-15.1) 11/01/23 22:53 Plt Count 204 10^3/cmm (157-399) 11/01/23 22:53 MPV 10.2 fL (7.4-10.4) 11/01/23 22:53 Gran % Cancelled 11/01/23 21:08 Neut % (Auto) 89.1 % 11/01/23 22:53 Lymph % (Auto) 6.6 % 11/01/23 22:53 [place] % (Auto) 3.3 % 11/01/23 22:53 Eos % (Auto) 0.1 % 11/01/23 22:53 Baso % (Auto) 0.2 % 11/01/23 22:53 Neut # (Auto) 16.96 10^3/uL (1.8-7.7) H 11/01/23 22:53 Lymph # (Auto) 1.3 10^3/uL (0.8-4.8) 11/01/23 22:53 [place] # (Auto) 0.6 10^3/uL (0.2-0.9) 11/01/23 22:53 Eos # (Auto) 0.0 10^3/uL (0.0-0.8) 11/01/23 22:53 Baso # (Auto) 0.0 10^3/uL (0.0-0.1) 11/01/23 22:53 Absolute Gran (auto) Cancelled 11/01/23 21:08 Nucleated RBC % (auto) 0 % 11/01/23 22:53 Nucleated RBCs # 0.0 /100WBC 11/01/23 22:53 Sodium 140 mmol/L (136-145) 11/01/23 21:08 Potassium 3.9 mmol/L (3.5-5.1) 11/01/23 21:08 Chloride 106 mmol/L (98-107) 11/01/23 21:08 Carbon Dioxide 22 mmol/L (22-29) 11/01/23 21:08 Anion Gap 15.9 (5-19) 11/01/23 21:08 BUN 14 mg/dL (6-20) 11/01/23 21:08 Creatinine 1.0 mg/dL (0.5-0.9) H 11/01/23 21:08 GFR Calculation 57.1 mL/min (90-130) L 11/01/23 21:08 Glucose 101 mg/dL (65-115) 11/01/23 21:08 Calculated Osmolality 291 mOsm/kg (285-295) 11/01/23 21:08 Lactic Acid 1.2 mmol/L (0.5-2.2) 11/01/23 22:53 Calcium 8.6 mg/dL (8.5-10.5) 11/01/23 21:08 Total Bilirubin 0.9 mg/dL (0.15-1.2) 11/01/23 21:08 AST 24 U/L (0-32) 11/01/23 21:08 ALT 20 U/L (0-33) 11/01/23 21:08 Alkaline Phosphatase 98 U/L (35-105) 11/01/23 21:08 C-Reactive Protein 19.3 mg/L (0.0-4.9) H 11/01/23 21:08 Total Protein 7.1 g/dL (6.6-8.7) 11/01/23 21:08 Albumin 3.9 g/dL (3.5-5.2) 11/01/23 21:08 Globulin 3.2 g/dL (1.3-4.6) 11/01/23 21:[address] [place] (Yellow) A 11/01/23 21:42 Urine Appearance Hazy (CLEAR) A 11/01/23 21:42 Urine pH 5 (5-7) 11/01/23 21:42 Ur Specific [place] 1.020 (1.005-1.030) 11/01/23 21:42 Urine Protein 3+ (Negative) H 11/01/23 21:42 Urine Glucose (UA) Norm (Normal) 11/01/23 21:42 Urine Ketones Negative (Negative) 11/01/23 21:42 Urine Blood 2+ (Negative) H 11/01/23 21:42 Urine Nitrate Positive (Negative) H 11/01/23 21:42 Urine Bilirubin 3+ (Negative) H 11/01/23 21:42 Urine Urobilinogen 4+ mg/dL (Negative) H 11/01/23 21:42 Ur Leukocyte Esterase Trace (Negative) H 11/01/23 21:42 Urine RBC 0-4 /hpf (0-2) H 11/01/23 21:42 Urine WBC 15-25 /hpf (0-5) H 11/01/23 21:42 Ur Squamous Epith Cells 5-10 /hpf (0-5) H 11/01/23 21:42 Amorphous Sediment Not Reportable 11/01/23 21:42 Urine Bacteria 2+ /hpf (NONE) H 11/01/23 21:42 Urine Mucus 1+ /hpf 11/01/23 21:42 Discharge Plan Discharge Patient Disposition: Xfer Short-Term Hosp Clinical Impression: Hydroureteronephrosis Obstruction of ureter Qualifiers: Laterality: right Qualified Code(s): N13.5 - Crossing vessel and stricture of ureter without hydronephrosis Urinary tract infection Qualifiers: Urinary tract infection type: site unspecified Hematuria presence: with hematuria Qualified Code(s): N39.0 - Urinary tract infection, site not specified Condition: Stable Referrals: Cecile Fuentes FNP [Primary Care Provider] - Coding Level of Care Code ED Lithograph Printer for Aj Keith
[2023-11-01] MEDS: ketorolac 60 mg/2 mL INJ 30 MG IVP (21:43)
[2023-11-01] MEDS: metoclopramide 5 mg/mL SDV 2 mL 10 MG IVP (21:44)
[2023-11-01] MEDS: sodium chloride 0.9% 1,000 ML 999 ML IV (21:45)
[2023-11-01 22:03] LABS: Alanine Aminotransferase 20 U/L (0-33); Albumin Level 3.9 g/dL (3.5-5.2); Alkaline Phosphatase 98 U/L (35-105); Aspartate Amino Transferase 24 U/L (0-32); Blood Urea Nitrogen 14 mg/dL (6-20); C Reactive Protein 19.3 mg/L (0.0-4.9); Calcium 8.6 mg/dL (8.5-10.5); Carbon Dioxide 22 mmol/L (22-29); Chloride 106 mmol/L (98-107); Creatinine Clr Calc Pharmacy 77.4235; Globulin 3.2 g/dL (1.3-4.6); Glomerular Filtration Rate 57.1 mL/min (90-130); Glucose 101 mg/dL (65-115); Osmolality Calculated 291 mOsm/kg (285-295); Sodium 140 mmol/L (136-145); Total Bilirubin 0.9 mg/dL (0.15-1.2); Total Protein 7.1 g/dL (6.6-8.7)
[2023-11-01 22:09] LABS: Anion Gap 15.9 (5-19); Potassium 3.9 mmol/L (3.5-5.1)
[2023-11-01 22:09] LABS: Urine Appearance Hazy (CLEAR); Urine Color Orange (Yellow)
[2023-11-01 22:10] LABS: Bacteria Urine 2+ /hpf; Bilirubin Urine 3+ (Negative); Blood Urine 2+ (Negative); Glucose Urine UA Norm (Normal); Ketones Urine Negative (Negative); Leukocyte Esterase Urine Trace (Negative); Mucus Urine 1+ /hpf; Nitrate Urine Positive (Negative); Protein Urine 3+ (Negative); RBC Urine 0-4 /hpf (0-2); Urobilinogen Urine 4+ mg/dL (Negative); WBC Urine 15-25 /hpf (0-5); pH Urine 5 (5-7)
[2023-11-01 22:11] LABS: Add Urine Culture? Yes
[2023-11-01] MEDS: tamsulosin 0.4 mg Capsule 0.800000000000000044 MG PO (22:44)
[2023-11-01 23:03] LABS: Basophils % 0.2 %; Eosinophils % 0.1 %; Hematocrit 42.4 % (36-47); Lymphocytes # 1.3 10^3/uL (0.8-4.8); Lymphocytes % 6.6 %; Mean Corpuscular Hemoglobin 30.8 pg (27-33); Mean Corpuscular Volume 93.4 fl (85-98); Mean Platelet Volume 10.2 fL (7.4-10.4); Monocytes # 0.6 10^3/uL (0.2-0.9); Monocytes % 3.3 %; Neutrophils # 16.96 10^3/uL (1.8-7.7); Neutrophils % 89.1 %; Nucleated Red Blood Cells % 0 %; Platelet Count 204 10^3/cmm (157-399); Red Blood Count 4.54 10^6/uL (3.85-5.65); Red Cell Distribution Width 13.5 % (12.1-15.1); White Blood Count 19.02 10^3/uL (3.29-11.43)
[2023-11-01 23:19] LABS: Lactic Sepsis W/Reflex 1.2 mmol/L (0.5-2.2)
[2023-11-01 23:47] VITALS: BP 123/54; PULSE 68; RESP 18; O2SAT 97
== END 2023-11-02 00:25 | disposition short-term general hospital (02) ==
PROVIDERS: Emergency Medicine; Emergency Provider Physician Assistant; PCP Nurse Practitioner Family
DX: N13.6 Pyonephrosis (principal); R31.9 Hematuria, unspecified; Z87.442 Personal history of urinary calculi; Z87.440 Personal history of urinary (tract) infections
CPT/HCPCS: 36415; 74176; 80053; 81001; 83605; 85025; 86140; 87086; 96361; 96374; 96375; 99285; J1885; J2765; J7030

== ENCOUNTER 2024-09-29 13:05 | Outpatient (CLI) | payer BC, SELFPAY ==
--- NOTE | 2024-09-29 13:09 | MM_ITS ---
WS: [id number] BILATERAL 3D TOMOSYNTHESIS DIGITAL SCREENING MAMMOGRAPHY WITH CAD CLINICAL INFORMATION: SCREENING HISTORY: Screening mammogram. No current complaints. COMPARISON: 2020 TECHNIQUE: Bilateral CC and MLO views. FINDINGS: Scattered fibroglandular densities bilaterally. No suspicious focal mass, asymmetry, calcifications, or architectural distortion. No evidence of malignancy. MM/MM scr BI tomosynthesis [id number] IMPRESSION: DENSITY: There are scattered areas of fibroglandular density. BI-RADS: 1 - Negative. FOLLOW UP: 1 Year Follow-up Recommend return to annual screening mammography.
== END 2024-09-29 13:06 | disposition home or self-care (01) ==
PROVIDERS: PCP Nurse Practitioner Family; Visit Provider Nurse Practitioner Family
DX: Z12.31 Encounter for screening mammogram for malignant neoplasm of breast (principal); R92.323 Mammographic fibroglandular density, bilateral breasts
CPT/HCPCS: 77063; 77067